=== PATIENT | female | born 1945 | race Caucasian/White ===

== ENCOUNTER 2016-09-11 14:14 | Emergency (ER) | payer BC, MEDICARE ==
[2016-09-11 15:18] LABS: ABSOLUTE NEUTROPHIL COUNT 4.2 K/mm3 (1.8-7.7); BASO % 0.4 % (0.2-1.0); EOS # 0.2 (0.0-0.5); HEMATOCRIT 38.1 % (37.0-47.0); HEMOGLOBIN 11.4 gm/l (12.0-16.0); IMM NEUT% 0.3 % (0-1); LYMPH # 0.9 (1.0-4.8); LYMPH % 13.9 % (15-45); MEAN CELL VOLUME 89.2 fl (81.0-99.0); MEAN CORPUSCULAR HEMOGLOBIN 26.7 pg (27.0-31.0); MEAN CORPUSCULAR HGB CONC 29.9 g/dl (33.0-37.0); MEAN PLATELET VOLUME 9.6 fl (7.4-10.4); MONO # 1.4 (0.0-0.8); MONO % 19.9 % (4-12); NEUT % 62.5 % (43-75); PLATELET COUNT 424 K/mm3 (130-400)
[2016-09-11 15:24] LABS: INR 1.82; PROTHROMBIN TIME 19.7 SECONDS (9.3-11.4)
[2016-09-11 15:27] LABS: TROPONIN I 0.02 ng/ml (0.0-0.06)
[2016-09-11 15:29] LABS: ALBUMIN 4.1 gm/dL (3.5-5.7); CALCIUM 9.9 mg/dL (8.6-10.3); MAGNESIUM 1.7 mg/dL (1.9-2.7)
[2016-09-11 15:35] LABS: THYROID STIMULATING HORMONE 0.4 uIU/ml (0.34-5.60)
[2016-09-11] MEDS ORDERED: Magnesium Oxide 400 MG TABLET ONE (16:13)
[2016-09-11 16:38] LABS: SPECIFIC GRAVITY 1.015 (1.001-1.030); URINE APPEARANCE CLEAR; URINE BILIRUBIN NEGATIVE (NEGATIVE); URINE BLOOD NEGATIVE (NEGATIVE); URINE COLOR YELLOW; URINE GLUCOSE (UA) NEGATIVE (NEGATIVE); URINE LEUKOCYTE ESTERASE NEGATIVE (NEGATIVE); URINE NITRITE NEGATIVE (NEGATIVE); URINE PROTEIN 1+ (NEGATIVE); URINE UROBILINOGEN NORMAL (0-1 mg/dl)
[2016-09-11 16:48] LABS: URINE BACTERIA 0; URINE EPITHELIAL CELLS 0-1 /hpf; URINE RBC 0-1 /hpf; URINE WBC NEG /hpf
== END 2016-09-11 17:32 | disposition home or self-care (01) ==
LOC: ED 14:14
DX: M79.601 Pain in right arm (principal); I48.91 Unspecified atrial fibrillation; J44.9 Chronic obstructive pulmonary disease, unspecified; Z95.0 Presence of cardiac pacemaker; Z79.01 Long term (current) use of anticoagulants; Z94.4 Liver transplant status
CPT/HCPCS: 85025; 80053; 83735; 85610; 84443; 84484; 81001; 99283 ×2; 93005; A9270